=== PATIENT | female | born 1995 ===

== ENCOUNTER 2020-12-27 09:43 | Inpatient (IN) | payer OTHER ==
[~2020-12-27] VITALS: Ht 165.1 cm; Wt 113.6 kg
[2021-01-09] VITALS (12 sets, daily range): BP systolic 131–158; BP diastolic 70–91; PULSE 72–109; TEMP 97.6–98.5
--- NOTE | 2021-01-09 11:11 | NUR ---
The patient ambulated back to [place] [facility] independently using a steady gait and appeared to tolerate the activity well. Vital signs obtained. Consent signed. 18G IV started in left forearm with one stick, LR infusing without difficulty. Assessment completed. Call light is within reach. Cousin brought back to be at her bedside. Urine obtained for a HCG with a negative result. Will continue to monitor the patient.
--- NOTE | 2021-01-09 11:48 | NUR ---
The patient was taken back via cart to the operating room at this tme. The patient's chart was sent with her to surgery. The patient's belongings will be taken over to the recovery room and then transferred up to the 3rd floor post operatively.
--- NOTE | 2021-01-09 20:15 | NUR ---
Pt. sitting up in bed. Pt. is A&OX3, assessment complete. IV to lt. forearm patent, IV fluids infusing per orders. Pt. reports feeling very nauseated. Dr. Andres notified, new order received. Gave Phenergan. Pt. reports pain to abd. at a 3 on pain scale, and denies need for pain meds at this time. Abd. incisions well approximated. RAMIRO noted to lt. abd. Dressing CDI, minimal drainage noted at this time. Pt. denies further needs, call light within reach.
[2021-01-10 03:16] VITALS: BP 135/87; PULSE 100; TEMP 98.8
[2021-01-10 08:55] VITALS: BP 144/83; PULSE 86; TEMP 99
--- NOTE | 2021-01-10 10:48 | NUR ---
INGE completed intake with patient. Patient states that she lives in [place] with her [place] [phone]. Patient states she does not utilize DME, and is independent with ADL's. Patient provides that her PCP is Dr. Forrester, and obtains meds from [facility]. Tamirt states that she is able to afford her medications. Patient does not wish to complete DPOA-HC documentation at this time and states that she thinks that she has the documentation already but is not sure. Her plan is to return to her home [place], and has no concerns with doing so. INGE will continue to follow. Plan: Home with spouse
--- NOTE | 2021-01-10 10:56 | NUR ---
Initial visit; Patient thanked Medical Billing Coordinator for looking in on her and for offering comfort and God's blessings.
--- NOTE | 2021-01-10 11:00 | NUR ---
Patient is doing well. She has been having constant nausea. Pain she stated it tolerable. She is not producing emesis. Encouraged to continue having clear liquids because if she does not eat or drink, she could feel worse. Zofran and phenergan given for nausea. NO other changes at this time. Call light within reach.
[2021-01-10] MEDS ORDERED: ZOFRAN 4MG T4 MG/TAB PO (12:08)
[2021-01-10] MEDS ORDERED: NORCO 325 MG-51 TAB PO (12:08)
[2021-01-10 12:41] VITALS: BP 144/89; PULSE 87; TEMP 98.5
--- NOTE | 2021-01-10 15:30 | NUR ---
Patient is discharging home. Discharge instructions discussed with patient. No questions verbalized. INT discontinued. She already has her follow up appointment scheduled with via [facility]. She still has nausea, explained it should get better. Explained where her medications were sent for pickup. All belongings packed up by her friend. Copies of discharge instructions sent with patient. Patient walked out via wheel chair by Sachi TRUONG.
== END 2021-01-10 15:30 | disposition home or self-care (01) | DRG 621 ==
LOC: INPTSU 01-09 10:26 → SURG 01-09 12:00 → EDBD 01-09 12:30 → SURG 01-09 14:45
PROVIDERS: ADMIT Surgery
PROC: 0DB64Z3 Excision of Stomach, Percutaneous Endoscopic Approach, Vertical (ICD-10-PCS; principal; 2021-01-09 12:00)
DX: E66.01 Morbid (severe) obesity due to excess calories (principal); J45.909 Unspecified asthma, uncomplicated; E28.2 Polycystic ovarian syndrome; Z68.41 Body mass index [BMI] 40.0-44.9, adult; Z90.49 Acquired absence of other specified parts of digestive tract
CPT/HCPCS: J1170; J2405; J2550; J7120